=== PATIENT | male | born 1985 | race African-American/Black ===

== ENCOUNTER 2017-06-23 14:30 | Emergency (ER) | payer OTHER ==
[~2017-06-23] VITALS: Ht 193 cm; Wt 81.7 kg
[~2017-06-23 14:30] MED LIST: FLEXERIL; NAPROXEN 375 M375 M1 PO; PERCOCET 5-3251 EACH PO
[2017-06-23] MEDS ORDERED: KEFLEX500 MG PO (15:08)
[2017-06-23] MEDS ORDERED: MOBIC7.5 MG PO (15:10)
[2017-06-23 15:55] VITALS: BP 121/73
== END 2017-06-23 15:56 | disposition home or self-care (01) ==
LOC: ER 14:30
DX: S40.861A Insect bite (nonvenomous) of right upper arm, initial encounter (principal); L03.113 Cellulitis of right upper limb; F10.99 Alcohol use, unspecified with unspecified alcohol-induced disorder; F12.10 Cannabis abuse, uncomplicated; Z98.890 Other specified postprocedural states; W57.XXXA Bitten or stung by nonvenomous insect and other nonvenomous arthropods, initial encounter; Y93.89 Activity, other specified; Y92.89 Other specified places as the place of occurrence of the external cause; Y99.8 Other external cause status